=== PATIENT | female | born 2000 | race Caucasian/White ===

== ENCOUNTER 2023-06-10 11:55 | Outpatient (CLI) | payer OTHER, SELFPAY ==
[2023-06-10 13:17] LABS: Beta HCG Quantitative < 2.39 mIU/ML
[2023-06-10 13:41] LABS: HIV 1/2 Ab P24 Ag Result Negative (Negative)
[2023-06-10 14:05] LABS: Hepatitis B Surface Antigen Negative (Negative)
[2023-06-10 14:10] LABS: HAV RESULT Negative (Negative); Hepatitis B Core IgM Result Negative (Negative)
[2023-06-10 14:22] LABS: Hepatitis C Virus Antibody Negative (Negative)
[2023-06-10 16:17] LABS: Rapid Plasma Reagin Non-Reactive (NonReactive)
== END 2023-06-10 11:56 | disposition home or self-care (01) ==
LOC: ANHLAB 11:56
PROVIDERS: PCP Family Medicine Adolescent Medicine; Visit Provider Obstetrics & Gynecology
DX: Z11.3 Encounter for screening for infections with a predominantly sexual mode of transmission (principal); N92.6 Irregular menstruation, unspecified
CPT/HCPCS: 36415; 80074; 84702; 86592; 86695; 86696; 86703; G0432

== ENCOUNTER 2024-01-13 13:08 | Outpatient (CLI) | payer OTHER, SELFPAY ==
[2024-01-13 14:12] LABS: Beta HCG Quantitative < 2.39 mIU/ML
[2024-01-13 14:33] LABS: HIV 1/2 Ab P24 Ag Result Negative (Negative)
[2024-01-13 14:55] LABS: Hepatitis B Surface Antigen Negative (Negative)
[2024-01-13 14:59] LABS: HAV RESULT Negative (Negative); Hepatitis B Core IgM Result Negative (Negative)
[2024-01-13 15:09] LABS: Hepatitis C Virus Antibody Negative (Negative)
[2024-01-13 19:10] LABS: Rapid Plasma Reagin Non-Reactive (NonReactive)
== END 2024-01-13 13:09 | disposition home or self-care (01) ==
LOC: ANHLAB 13:09
PROVIDERS: PCP Family Medicine Adolescent Medicine; Visit Provider Obstetrics & Gynecology
DX: N91.2 Amenorrhea, unspecified (principal)
CPT/HCPCS: 36415; 80074; 84702; 86592; 86695; 86696; 86703; G0432